=== PATIENT | female | born 1955 | race Caucasian/White ===

== ENCOUNTER → 2022-06-15 | Outpatient (CLI) | payer MEDICARE, OTHER ==
[~2022-06-15] MED LIST: ASP81TEC PO; ASPI1TAB PO; DEXL60CA5 PO; ESTR1PAT31 TD; ESTR1PAT33 TD; PNT40TEC PO; SMV10T PO; VNL75CCR PO
--- NOTE | 2022-06-15 12:51 | Diagnostic Imaging Report ---
INDICATION: Routine screening. COMPARISON: 06/12/2015 and 04/24/2014. TECHNIQUE: 2D and 3D bilateral screening mammography was performed with CAD. FINDINGS: Both breasts are heterogeneously dense, limiting the sensitivity of mammography. There are scattered benign calcifications. No mass or malignant-appearing microcalcifications are seen. The axillae are unremarkable. IMPRESSION: No mammographic features suspicious for malignancy are identified. ACR BI-RADS Category 2: Benign findings. Result letter will be mailed to the patient. Note: At least 10% of breast cancer is not imaged by mammography. Dictated by: Dictated on workstation # [id number]
== END ==
LOC: RAD 07:29
PROVIDERS: ATTEND Family Medicine
DX: Z12.31 Encounter for screening mammogram for malignant neoplasm of breast (principal)
CPT/HCPCS: 77063; 77067

== ENCOUNTER → 2023-02-02 | Outpatient (CLI) | payer MEDICARE, OTHER | LOC: CARD 13:30 | PROVIDERS: ATTEND Family Medicine | DX: I51.7 Cardiomegaly (principal); I34.0 Nonrheumatic mitral (valve) insufficiency | CPT/HCPCS: 93306 ==

== ENCOUNTER → 2023-03-16 | Outpatient (CLI) | payer MEDICARE, OTHER ==
[2023-03-16 12:27] VITALS: BP 142/90
--- NOTE | 2023-03-16 12:28 | Cardiology Stress Test Report ---
Stress Test Report Date of Procedure/Referring: Date of Procedure: March 16, 2023 PCP Alissa Charlton DO Admitting Physician Admitting Physician: Attending Physician: Alissa Charlton DO Baseline Heart Rate: 53 Baseline Blood Pressure: Blood Pressure Systolic: 142 Blood Pressure Diastolic: 90 Baseline EKG: Baseline EKG: NSR Summary/Conclusion: Summary: In summary, the patient started exercising with a baseline heart rate, blood pressure and EKG mentioned above Patient was able to exercise for a total of 6 minutes on Gael protocol, METs 7.3 Maximum heart rate 130 Maximum blood pressure 162/50 Stress EKG, Minimal nondiagnostic changes Recovery EKG , Return to baseline Conclusion: 1. Good exercise tolerance for a total of 6 minutes on Gael protocol, 7.3 METs, achieving 84 percent of maximum expected heart rate 2. Minimal nondiagnostic EKG changes with exercise returned to baseline during recovery 3. No arrhythmia was noted, occasional PVCs noted during exercise Copy Copies To 1: ALISSA CHARLTON BASHAR J MD March 16, 2023 12:27
== END ==
LOC: CARD 09:34
PROVIDERS: ATTEND Family Medicine
DX: R06.00 Dyspnea, unspecified (principal); R07.89 Other chest pain

== ENCOUNTER → 2023-03-29 | Outpatient (CLI) | payer MEDICARE, OTHER ==
--- NOTE | 2023-03-29 09:03 | Diagnostic Imaging Report ---
INDICATION: Postmenopausal state. COMPARISON: None available FINDINGS: AP Spine L1-L4: [BMD (g/cm2): 0.771] [T-Score: -3.6] [Z-Score: -2.2] [BMD Previous: na] [BMD % Change: na] LT Hip Neck: [BMD (g/cm2): 0.622] [T-Score: -3.0] [Z-Score: -1.6] LT Hip Total: [BMD (g/cm2):0.725] [T-Score:-2.2] [Z-Score: -1.1] [BMD Previous: na] [BMD % Change: na] RT Hip Neck: [BMD (g/cm2):0.659] [T-Score:-2.7] [Z-Score:-1.3] RT Hip Total: [BMD (g/cm2):0.761] [T-score:-2.0] [Z-Score:-0.8] [BMD Previous:na] [BMD % Change:na] *Indicates significant change from prior examination based on 95% confidence level. World Health Organization criteria for BMD interpretation classify patients as Normal (T-score at or above -1.0), Osteopenic (T-score between -1.0 and -2.5) or Osteoporotic (T-score at or below -2.5). LIMITATIONS AND MODIFICATION: None. FRACTURE RISK (FRAX SCORE): The ten year probability of (%): Major Osteoporotic Fracture: [17.2] Hip Fracture: [5.1] IMPRESSION: 1. Osteoporosis. 2. Baseline examination. 3. See below National Osteoporosis Foundation guidelines on when to potentially initiate pharmacologic therapy. Based on the National Osteoporosis Foundation Guidelines, pharmacologic treatment should be initiated in any of the following, unless clinical conditions suggest otherwise: * Any patient with prior fragility fracture of the hip or vertebrae. A spine fracture indicates 5X risk for subsequent spine fracture and 2X risk for subsequent hip fracture. * Osteoporosis (T-score <-2.5). * Postmenopausal women and men age 50 and older with low bone mass/osteopenia (T-score between -1.0 and -2.5) by DXA and 10-year major osteoporotic fracture greater than 20% or a 10-year probability of hip fracture greater than 3%. These fracture risks are supplied above in the FRAX score, if applicable. * Clinician judgement and/or patient preferences may indicate treatment for people with 10-year fracture probabilities above or below these levels. Dictated by: Dictated on workstation # [id number]
== END ==
LOC: RAD 08:05
PROVIDERS: ATTEND Family Medicine
DX: M81.0 Age-related osteoporosis without current pathological fracture (principal); M85.80 Other specified disorders of bone density and structure, unspecified site
CPT/HCPCS: 77080

== ENCOUNTER 2023-05-19 15:14 | Outpatient (RCR) | payer MEDICARE, OTHER | END 2023-05-23 | disposition home or self-care (01) | PROVIDERS: ATTEND Nurse Practitioner Family | DX: M54.17 Radiculopathy, lumbosacral region (principal); M81.0 Age-related osteoporosis without current pathological fracture ==

== ENCOUNTER 2023-06-22 08:04 | Outpatient (RCR) | payer MEDICARE, OTHER | END 2023-06-23 | disposition home or self-care (01) | PROVIDERS: ATTEND Nurse Practitioner Family | DX: M81.0 Age-related osteoporosis without current pathological fracture (principal) ==

== ENCOUNTER 2023-07-04 16:14 | Emergency (ER) | payer MEDICARE, OTHER ==
[~2023-07-04] VITALS: Ht 160 cm; Wt 72.0 kg
[2023-07-04] MEDS ORDERED: ONDANSETRON 4 MG ORAL DISSOLVE TABLET PO ONE (16:30)
[2023-07-04] MEDS ORDERED: oxyCODONE IMMEDIATE RELEASE 5 MG TABLET PO ONE (16:30)
--- NOTE | 2023-07-04 16:32 | ED Upper Extremity ---
General Chief Complaint: Upper Extremity Stated Complaint: FALL/LEFT ARM INJURY Nursing Triage Note: PT AMB TO [facility] 5 PT CO OF HITTING HEAD ON [employer] HIT HEAD, TRIED TO CATCH SELF AND FELL ON L FA. PT CO OF PAIN 7/10. DENIES LOC FROM HITTING HEAD Source: patient Exam Limitations: no limitations History of Present Illness Date Seen by Provider: Jul 04, 2023 Time Seen by Provider: 16:18 Initial Comments 68-year-old female is [id number] with no pertinent past medical history coming in after she was playing with grandchildren, running on the playground, hit her head on a piece of wood, fell to the ground and caught herself on her left arm. Having significant left wrist pain. Did not pass out, remembers all events, does not take any blood thinners. Had some Tylenol prior to arrival. Allergies and Home Medications Allergies Coded Allergies: naproxen sodium (Unverified Adverse Reaction, Unknown, 06/15/22) Patient Home Medication List Home Medication List Reviewed: Yes Aspirin (Aspirin Ec 81 Mg) 81 Mg Tabec, 81 MG PO DAILY, (Reported) Entered as Reported by: BRIAN ANDRADE on 07/18/12 1635 Aspirin/Acetaminophen/Caffeine (Excedrin Caplet) 1 Tab Tablet, 1 TAB PO Q4H PRN, (Reported) Entered as Reported by: TALON ARBOLEDA on 07/17/12 1416 Dexlansoprazole (Dexilant) 60 Mg Cap., 60 MG PO DAILY, (Reported) Entered as Reported by: IRA ZHANG on 06/20/13 0044 Estradiol (Estradiol Patch 0.06 Mg/Day) 1 Each Patch.tdwk, 1 EACH TD UD, (Reported) Entered as Reported by: TALON ARBOLEDA on 07/17/12 1414 Oxycodone HCl (Oxycodone HCl) 5 Mg Tablet, 5 MG PO Q6H PRN for PAIN-SEVERE (8- 10) Prescribed by: TRISTEN GODDARD on 07/04/23 1726 Pantoprazole Sod (Protonix Tab) 40 Mg Tab, 40 MG PO BID, (Reported) Entered as Reported by: BRIAN ANDRADE on 07/18/12 1635 Simvastatin (Zocor) 10 Mg Tab, 10 MG PO HS Prescribed by: ZORA CARIAS on 06/21/13 1041 Venlafaxine Hcl (Effexor Xr) 75 Mg Cap.sr.24h, 75 MG PO DAILY, (Reported) Entered as Reported by: TOBI EWING on 07/17/12 1103 Review of Systems Constitutional: No fever EENTM: no symptoms reported Respiratory: no symptoms reported Cardiovascular: no symptoms reported Gastrointestinal: no symptoms reported Genitourinary: no symptoms reported Musculoskeletal: see HPI Skin: no symptoms reported Psychiatric/Neurological: No Symptoms Reported Past Xhswmsq-Mmyczn-Dykgfm Hx Patient Social History Tobacco Use?: No Use of E-Cig and/or Vaping dev: No Substance use?: No Alcohol Use?: No Pt feels they are or have been: No Immunizations Up To Date First/Initial COVID19 Vaccinat: YES Second COVID19 Vaccination Jack: YES Third COVID19 Vaccination Date: YES Past Medical History Surgery/Hospitalization HX: X 2 Reproductive Disorders: No Sexually Transmitted Disease: No HIV/AIDS: No Gastroesophageal Reflux Family Medical History No Pertinent Family Hx Physical Exam Vital Signs Vital Signs - First Documented 07/04/23 16:20 Temp 36.7 Pulse 59 Resp 16 B/P (MAP) 178/94 (122) Pulse Ox 96 Capillary Refill : Less Than 3 Seconds Height, Weight, BMI Height: '" Weight: 194lbs. oz. 87.847709hn; 28.00 BMI Method:Stated General Appearance: WD/WN, no apparent distress HEENT: PERRL/EOMI, normal ENT inspection, pharynx normal Neck: non-tender, full range of motion, supple, normal inspection Cardiovascular: regular rate, rhythm, no edema Respiratory: chest non-tender, lungs clear, normal breath sounds, no respiratory distress, no accessory muscle use Shoulder: normal inspection, non-tender, no evidence of injury, normal ROM Elbow/Forearm: normal inspection, non-tender, no evidence of injury, normal ROM Wrist: Yes pain (Pain along the left distal radius, no scaphoid pain, neurovascularly intact otherwise), Yes soft tissue tenderness Neurologic/Tendon: normal sensation, normal motor functions, normal tendon functions Neurologic/Psychiatric: no motor/sensory deficits, alert, normal mood/affect Skin: normal color, warm/dry Procedures/Interventions Splinting and Joint Reduction : Hand-Made Type: orthoglass Splint Application: Short Arm (Sugar-tong splint applied after cotton padding. Jose bandage wrapped afterwards. Neurovascularly intact before and after. Patient tolerated this well.) Progress/Results/Core Measures Results/Orders My Orders Orders - TRISTEN GODDARD MD Ct Head Wo (07/04/23 16:24) Hand, Left, 3 Views (07/04/23 16:24) Oxycodone Immediate Rel Tablet (Oxycodon (07/04/23 16:30) Ondansetron Oral Dissolve Tab (Ondanset (07/04/23 16:30) Wrist, Left, 3 Views Or More (07/04/23 16:24) Medications Given in ED Current Medications Medications Dose Ordered Sig/Mustapha Route Start Time Stop Time Status Last Admin Dose Admin Ondansetron HCl 4 mg ONCE ONCE PO 07/04/23 16:30 07/04/23 16:31 DC 07/04/23 16:31 4 MG Oxycodone HCl 5 mg ONCE ONCE PO 07/04/23 16:30 07/04/23 16:31 DC 07/04/23 16:31 5 MG Vital Signs/I&O 07/04/23 07/04/23 16:20 17:25 Temp 36.7 Pulse 59 62 Resp 16 16 B/P (MAP) 178/94 (122) 154/81 Pulse Ox 96 96 Blood Pressure Mean: 122 Progress Progress Note : Progress Note 68-year-old female coming in after she hit her head in the playground, falling and landing on her left wrist. ABCs were intact and vitals were stable on presentation with a GCS of 15. Physical exam mostly with left distal radius and ulnar styloid pain. No scaphoid pain. CT head ordered and interpreted by me given her age with hitting her head and does not show any obvious intracranial hemorrhage or fracture. X-ray of the left hand and left wrist ordered and interpreted by me showing a Colles' type fracture of the distal radius and ulnar styloid fracture. She was given oxycodone for pain control. A sugar-tong splint was applied by myself. She should follow-up with orthopedics as an outpatient. Prescription sent for pain medication. I believe she stable for discharge with outpatient follow-up. She was sent home with strict return precautions. Diagnostic Imaging Diagonstic Imaging: Xray (left hand and wrist), CT (head) Comments NAME: OTTO QUINATNILLA [facility] REC#: [id number] PT STATUS: REG ER : 1955 PHYSICIAN: TRISTEN GODDARD MD ADMIT DATE: 07/04/23/ER Draft Date of Exam:07/04/23 CT HEAD WO PROCEDURE: CT head without contrast. TECHNIQUE: Multiple contiguous axial images were obtained through the brain without the use of intravenous contrast. Auto Exposure Controls were utilized during the CT exam to meet ALARA standards for radiation dose reduction. INDICATION: Head injury with fall. FINDINGS: The ventricles and sulci are within normal limits for size. There is no intracranial hemorrhage identified. There is no abnormal mass effect or shift of midline structures. There is rightward deviation of the nasal septum without evidence of paranasal sinus disease. IMPRESSION: Unremarkable CT of the head. Dictated on workstation # [id number] Dict: 07/04/23 1644 Trans: 07/04/23 1647 MONI [id number] Interpreted by: CHARLEY VILLALTA MD Electronically signed by: NAME: LALA QUINTANILLAYCE Ritu [facility] REC#: [id number] PT STATUS: REG ER : 1955 PHYSICIAN: TRISTEN GODDARD MD ADMIT DATE: 07/04/23/ER Signed Date of Exam:07/04/23 WRIST, LEFT, 3 VIEWS OR MORE INDICATION: Fracture. FINDINGS: There is mild dorsal angulation associated with an impacted distal radial Colles' type fracture. There is avulsion of the ulnar styloid tip. The carpal bones appear intact. No articular surface depression. IMPRESSION: Comminuted, impacted, and dorsally angulated distal radial fracture with ulnar styloid avulsion. Dictated by: Dictated on workstation # [id number] Dict: 07/04/23 1700 Trans: 07/04/231710 MONI [id number] Interpreted by: CHARLEY VILLAR Electronically signed by: CHARLEY VILLAR 07/04/231710 [facility] [place], [place] NAME: SOCORROOTTO Ritu [facility] REC#: [id number] PT STATUS: REG ER : 1955 PHYSICIAN: TRISTEN GODDARD MD ADMIT DATE: 07/04/23/ER Signed Date of Exam:07/04/23 HAND, LEFT, 3 VIEWS Indication: Injury, pain. Findings: 3 views left hand performed carpus, metacarpals and phalanges intact. The distal radial Colles' fracture with dorsal angulation and avulsion of the ulnar styloid tip again noted. Impression: Radial and ulnar fractures again noted, remaining bony structures of the hand appeared intact. Dictated by: Dictated on workstation # [id number] Dict: 07/04/231700 Trans: 07/04/231709 CVB [id number] Interpreted by: CHARLEY VILLAR Electronically signed by: CHARLEY VILLAR 07/04/231709 Departure Impression Primary Impression: Colles' fracture of left radius Qualified Codes: S52.532A - Colles' fracture of left radius, initial encounter for closed fracture Additional Impression: Fracture of ulnar styloid Qualified Codes: S52.615A - Nondisplaced fracture of left ulna styloid process, initial encounter for closed fracture Disposition: 01 HOME, SELF-CARE Condition: Stable Departure-Patient Inst. Decision time for Depature: 17:40 Referrals: ANTONIETA WHEAT DO (PCP/Family) Primary Care Physician MELLY MORALES MD Patient Instructions: Colles' Fracture (DC) Add. Discharge Instructions: Your wrist is unfortunately broken. Please follow-up with Dr. Morales within the next couple days, week at the latest to transition to a cast and discuss if he will need surgery or not. Try to max out the ibuprofen and Tylenol you are taking for pain control. If you have pain on top of that, then you can take oxycodone which were sent to your pharmacy. Scripts Oxycodone HCl (Oxycodone HCl) 5 Mg Tablet 5 MG PO Q6H PRN for PAIN-SEVERE (8-10) for 4 Days, #16 TAB Prov: TRISTEN GODDARD MD 07/04/23 TRISTEN GODDARD MD Jul 04, 2023 16:32
--- NOTE | 2023-07-04 16:47 | Diagnostic Imaging Report ---
PROCEDURE: CT head without contrast. TECHNIQUE: Multiple contiguous axial images were obtained through the brain without the use of intravenous contrast. Auto Exposure Controls were utilized during the CT exam to meet ALARA standards for radiation dose reduction. INDICATION: Head injury with fall. FINDINGS: The ventricles and sulci are within normal limits for size. There is no intracranial hemorrhage identified. There is no abnormal mass effect or shift of midline structures. There is rightward deviation of the nasal septum without evidence of paranasal sinus disease. IMPRESSION: Unremarkable CT of the head. Dictated by: Dictated on workstation # [id number]
--- NOTE | 2023-07-04 17:05 | Diagnostic Imaging Report ---
Indication: Injury, pain. Findings: 3 views left hand performed carpus, metacarpals and phalanges intact. The distal radial Colles' fracture with dorsal angulation and avulsion of the ulnar styloid tip again noted. Impression: Radial and ulnar fractures again noted, remaining bony structures of the hand appeared intact. Dictated by: Dictated on workstation # [id number]
--- NOTE | 2023-07-04 17:06 | Diagnostic Imaging Report ---
INDICATION: Fracture. FINDINGS: There is mild dorsal angulation associated with an impacted distal radial Colles' type fracture. There is avulsion of the ulnar styloid tip. The carpal bones appear intact. No articular surface depression. IMPRESSION: Comminuted, impacted, and dorsally angulated distal radial fracture with ulnar styloid avulsion. Dictated by: Dictated on workstation # [id number]
[2023-07-04 17:25] VITALS: BP 154/81
[2023-07-04] MEDS ORDERED: OXYC5TAB PO (17:26)
== END 2023-07-04 17:32 | disposition home or self-care (01) ==
LOC: EDUNIT# 16:14 → ER 16:16
DX: S52.532A Colles' fracture of left radius, initial encounter for closed fracture (principal); S52.615A Nondisplaced fracture of left ulna styloid process, initial encounter for closed fracture; W18.00XA Striking against unspecified object with subsequent fall, initial encounter; Y93.02 Activity, running
CPT/HCPCS: 29125; 70450; 73110; 73130

== ENCOUNTER → 2023-07-13 | Outpatient (CLI) | payer MEDICARE, OTHER ==
[~2023-07-13] MED LIST changes: +OXYC5TAB PO
--- NOTE | 2023-07-13 10:12 | Diagnostic Imaging Report ---
Indication: Routine screening. Comparison is made with prior mammogram 06/15/2022 and 06/12/2015. 2-D and 3-D bilateral screening mammography was performed with CAD. The current study was also evaluated with a Computer Aided Detection (CAD) system. Both breasts are heterogeneously dense, limiting the sensitivity of mammography. There was difficulty positioning the left breast due to the left upper extremity being located within a cast. The parenchymal pattern is stable. No mass or malignant-appearing microcalcifications are identified. There are scattered benign calcifications. The right axilla is unremarkable. IMPRESSION: BI-RADS Category 2 No mammographic features suspicious for malignancy are identified. ACR BI-RADS Category 2: Benign findings. Result letter will be mailed to the patient. Note: At least 10% of breast cancer is not imaged by mammography. Dictated by: Dictated on workstation # [id number]
== END ==
LOC: RAD 07:28
PROVIDERS: ATTEND Nurse Practitioner Family
DX: Z12.31 Encounter for screening mammogram for malignant neoplasm of breast (principal)
CPT/HCPCS: 77063; 77067